=== PATIENT | female | born 1960 | race Caucasian/White ===

== ENCOUNTER 2019-04-25 23:39 | Emergency (ER) | payer OTHER ==
[~2019-04-25 23:39] MED LIST: STOMACH MED
== END 2019-04-26 00:05 | disposition left against medical advice (07) ==
LOC: EMS 23:41
DX: R10.9 Unspecified abdominal pain (principal); R42 Dizziness and giddiness; Z53.21 Procedure and treatment not carried out due to patient leaving prior to being seen by health care provider